=== PATIENT | female | born 1935 | race Caucasian/White ===

== ENCOUNTER 2018-03-09 09:50 | Inpatient (IN) | payer OTHER ==
[~2018-03-09] VITALS: Ht 157.5 cm; Wt 54.4 kg
--- NOTE | ~2018-03-09 | HC ---
[facility] [place] [place] [address] CONSULTATION Name: SEEMA SEARS Room #: 224-P [facility] IN M.R.#: [id number] Admission: 03/09/18 Attend Phys: Cuba Villaseñor MD Discharge: 03/12/18 Date of : 35 Report #: [id number] THIS REPORT FOR: //name// CC: BYRON JAVIER Physician staff Cuba Villaseñor DATE OF SERVICE: 03/12/2018 ATTENDING PHYSICIAN: Dr. Villaseñor. REASON FOR CONSULTATION: Antibiotic management, left pyelonephritis. HISTORY OF PRESENT ILLNESS: The patient is an 82-year-old white woman who jokingly tells me she is 40, who reports she is feeling better compared to admission. Admission was promoted by nausea, vomiting and weakness as well as unsteadiness. Nausea and vomiting has improved. The unsteadiness was evaluated by Dr. Ly. The patient underwent extensive neuroradiology evaluation and essentially other than microvascular disease of the brain and some cerebral atrophy, no other findings detected. The urinalysis compatible with pyelonephritis. Urine culture pending at the time of this dictation. She had been afebrile and remains on treatment with Rocephin. SOCIAL HISTORY: Lives at home with several family members and her sister is said to be demented. PAST MEDICAL HISTORY: Heart murmur, broken shoulder and collarbone. History of left hip fracture 2016 requiring surgical intervention. Previous episode of C. difficile colitis. REVIEW OF SYSTEMS: The patient tells me she is feeling better. She has received excellent care in the hospital. All in all, she tries to continuously joke about these or that which I believe may be a little not appropriate for an 82-year-old woman, so I wonder if she has low-grade cognitive impairment. PHYSICAL EXAMINATION: GENERAL: A well-developed, not toxic looking woman. VITAL SIGNS: She has been afebrile since admission, temperature 98.2, pulse 87, respirations 18, BP 151/84. Height 5 feet 2 inches, weight 120 pounds. HEENMT: Head normocephalic, atraumatic. Pupils are equal, reactive, status post cataract surgery, bilateral arcus cornealis. Mouth: Good oral hygiene, dentition. NECK: Supple, no thyromegaly. BREASTS: Deferred. LUNGS; Clear to auscultation. HEART: S1, S2. No gallop or murmurs audible to me. [facility] [address] [place] [address] CONSULTATION Name: SEEMA SEARS Room #: 224-P [facility] IN M.R.#: [id number] Admission: 03/09/18 Attend Phys: Cuba Villaseñor MD Discharge: 03/12/18 Date of : 35 Report #: [id number] ABDOMEN: Soft, no masses or megaly. PELVIC AND RECTAL: Deferred. EXTREMITIES: No clubbing, cyanosis. NEUROLOGIC: Grossly within normal limits. LABORATORY DATA: Sodium 137, potassium 3.7, BUN 14, creatinine 0.6. WBC on admission was 14,600, hemoglobin 11.1 g/dL and platelets 678,000 with white blood cell count differential showing 84% segmented neutrophils. The white blood cell count yesterday dropped to 8800. The hemoglobin dropped to 9.3 g/dL. The urinalysis revealed proteinuria, 3+ blood, positive nitrite. Microscopic exam revealed pyuria, bacteriuria. The urine culture is pending 3 days later. RADIOLOGY EVALUATION: CT scan of the abdomen and pelvis repeated twice revealed findings compatible with left pyelonephritis, large left ovarian tumor, large uterine fibroids and inflammatory changes of the left kidneys, infected cyst could be given similar findings. MRI of the brain, CT scan of the brain revealed microvascular findings of lacunar strokes. MEDICATIONS: The patient has been on treatment with ceftriaxone 1 gram IV daily since 02/25/2018. She is also on oxybutynin, aspirin, pantoprazole, enoxaparin, acetaminophen p.r.n., ondansetron, thiamine is to be given for 2 doses. ASSESSMENT: 1. Acute left pyelonephritis, improving. 2. Leukocytosis, improved. 3. Anemia, undetermined etiology. 4. 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 5. Nausea, vomiting, possibly secondary to pyelonephritis, resolved. SUGGESTIONS: Obviously the patient appears to have improved with current regimen of Rocephin and intravenous fluids hydration. We will continue same. I suspect could change to an oral antibiotic as second or third generation oral cephalosporin will . The first strike that comes to mind is cefuroxime 500 mg p.o. b.i.d. Obviously, she could be discharged on these medications with no further workup of left kidney findings or plan. Dr. Villaseñor, thank you for requesting my suggestions in the care of your patient. <ELECTRONICALLY SIGNED> By: Kayode Clemens MD 03/13/18 0934 1117 2141 Kayode Clemens MD /nt
--- NOTE | ~2018-03-09 | EKG ---
[place] [address] [facility] [place] [address] ELECTROCARDIOGRAM REPORT Name: SEEMA SEARS Room #: 453-P ADM IN M.R.#: [id number] Admission: 03/09/18 Attend Phys: Cuba Villaseñor MD Discharge: Date of : 35 Report #: [id number] THIS REPORT FOR: //name// [facility] ED Test Date: 2018-03-09 Test Time: 10:42:52 Pat Name: SEEMA SEARS Department: Room: 170 16 Gender: F Vp Project: ERNESTO : 1935 Requested By: Tony Veliz Order Number: [id number] MD: Carl Oneal Measurements Intervals [place] Rate: 92 P: -18 MT: 107 QRS: -4 QRSD: 97 T: 46 QT: 353 QTc: 437 Interpretive Statements Sinus rhythm No significant abnormality Baseline wander in lead(s) V3 Compared to ECG 10/03/2015 20:48:42 No significant change was found Electronically Signed On 03-10-2018 14:07:59 CDT by Carl Oneal [email or web address] <ELECTRONICALLY SIGNED> By: Carl Oneal MD, [facility] 03/10/18 1404 1042 1042 Carl Oneal MD, [facility] /EPI
--- NOTE | ~2018-03-09 | HC ---
[facility] [place] [address] CONSULTATION Name: SEEMA SEARS Room #: 224-P [facility] IN M.R.#: [id number] Admission: 03/09/18 Attend Phys: Cuba Villaseñor MD Discharge: 03/12/18 Date of : 35 Report #: [id number] THIS REPORT FOR: //name// CC: BYRON JAVIER Physician staff Cuba Villaseñor DATE OF SERVICE: 03/09/2018 HISTORY OF PRESENT ILLNESS: This is an 82-year-old female patient who was admitted because the patient had some nausea and vomiting. The main neurological symptoms she reports is that she was somewhat unstable on walking. She said all the symptoms are already becoming better. She had similar symptoms in the past and she was diagnosed with C. difficile. She does have a history of urinary tract infection. These symptoms came spontaneously without any trauma. REVIEW OF SYSTEMS: Indicates that she is healthy. She takes 1 baby aspirin daily. She does take some medication for arthritis. She has a history of shingles. She has a history of heart murmur and C. difficile. She had a hip fracture at one time as I understand. I carried out the 14-point review of systems. She is feeling better. She is not having any new eye, ENT, cardiac, respiratory, , musculoskeletal, constitutional, dermatological, hematological, psychiatric, throat, allergic symptom associated with present symptomatology and her 14-point review of system was mostly noncontributory. PAST MEDICAL HISTORY: Positive for similar symptom. FAMILY HISTORY: Negative for early age stroke. SOCIAL HISTORY: She does not smoke. PHYSICAL EXAMINATION: Indicates she is alert, responsive, oriented. Her speech, concentration, fund of knowledge and memory are at her baseline. Cranial nerve examination 2-12 is unremarkable. She has symmetrical strength, sensation, reflexes and tone in all 4 extremities. She has no cerebellar sign and papilledema. There is no carotid bruit. There is no thyroid mass. She is a moderately built individual who does not have any dysmorphic features of eyes, ears and face. Her vision and hearing looks adequate. Pulses are difficult to feel. Cardiac examination does not appear to be showing any atrial fibrillation. No respiratory difficulty or rhonchi was noticed either side. Blood pressure is 141/67, respirations are 16, pulse is 96, temperature is 98.5. LABORATORY DATA: Her white count is elevated at 14.6 and she is somewhat dehydrated at GFR of 48. Her total protein is high and her albumin actually is low. She did not have any [place] [address] CONSULTATION Name: SEEMA SEARS Room #: [address] [place] [address] IN M.R.#: [id number] Admission: 03/09/18 Attend Phys: Cuba Villaseñor MD Discharge: 03/12/18 Date of : 35 Report #: [id number] IMPRESSION: The patient does complain of slight ataxia. She does need some workup. This all may be related to her metabolic disturbances. I would like to exclude a posterior fossa lesion by doing a CT tomorrow and probably an MRI tomorrow. There is some question of altered mentation in this patient, but does not look like this patient is having any alteration in her mental status now and we will just basically observe her in that stage and see how she does. She does have some increased white count and increased protein and that need to be further worked up and I will defer that further workup to you. RECOMMENDATIONS: 1. CT of the head. 2. Give her some time. 3. We will suggest checking an immunofixation electrophoresis because of her high protein. 4. Rest of the workup will depend upon the outcome of the testing and how she does by tomorrow and I will follow this patient with you and we may do an MRI and MRA tomorrow. Thank you very much for this referral. <ELECTRONICALLY SIGNED> By: Diogo Ly MD 03/13/18 0818 1742 2324 Diogo Ly MD /nt
--- NOTE | ~2018-03-09 | 2DMMODE ---
[facility] [address] [place] [address] 2 D/M-MODE ECHOCARDIOGRAM Name: SEEMA SEARS Room #: 453-P ADM IN M.R.#: [id number] Admission: 03/09/18 Attend Phys: Cuba Villaseñor MD Discharge: Date of : 35 Date of Service: 03/10/18 1115 Report #: [id number] THIS REPORT FOR: //name// APPROVED REPORT Study performed: 03/10/2018 08:16:15 EXAM: Comprehensive 2D, Doppler, and color-flow Echocardiogram Patient Location: Echo lab Room #: [facility] Status: routine BSA: 1.54 HR: 78 bpm BP: 120/60 mmHg Rhythm: NSR Other Information Study Quality: Adequate Indications Source of emboli, rule out clot. 2D Dimensions RVDd: 30.42 mm LVEF(%): 48.49 (>50%) IVSd: 9.99 (7-11mm) LVOT Diam: 19.16 (18-24mm) LVDd: 41.22 mm PWd: 9.23 (7-11mm) LVDs: 31.27 (25-40mm) Aortic Root: 30.58 mm Jones's LVEF: 48.49 % Volumes Left Atrial Volume (Systole) Single Plane 4CH: 20.41 mL Single Plane 2CH: 36.98 mL LA ESV Index: 21.00 mL/m2 Aortic Valve AoV Peak Albert.: 1.52 m/s AO Peak Gr.: 9.19 mmHg LVOT Max P.32 mmHg LVOT Max V: 1.04 m/s MYA Vmax: 1.98 cm2 Mitral Valve E/A Ratio: 0.8 MV Decel. Time: 178.90 ms [facility] [address] [place] [address] 2 D/M-MODE ECHOCARDIOGRAM Name: RENUSEEMA Room #: 453-[facility] IN ..#: [id number] Admission: 03/09/18 Attend Phys: Cuba Villaseñor MD Discharge: Date of : 35 Date of Service: 03/10/18 1115 Report #: [id number] MV E Max Albert.: 0.76 m/s MV A Albert.: 1.01 m/s MV PHT: 51.88 ms IVRT: 101.50 ms Pulmonary Valve PV Peak Albert.: 0.93 m/s PV Peak Gr.: 3.44 mmHg Pulmonary Vein P Vein S: 0.61 m/s P Vein A: 0.39 m/s P Vein D: 0.36 m/s P Vein S/D Ratio: 1.69 Tricuspid Valve TR Peak Albert.: 2.89 m/s RAP Estimate: 5.00 mmHg TR Peak Gr.: 33.48 mmHg PA Pressure: 38.00 mmHg Left Ventricle The left ventricle is normal size. Mild basal septal hypertrophy is present. Left ventricular systolic function is normal. LVEF is 55%. Mild diastolic dysfunction is present (impaired relaxation pattern). Right Ventricle The right ventricle is normal size. The right ventricular systolic function is normal. Atria The left atrium size is normal. The right atrium size is normal. Aortic Valve Aortic valve is mildly calcified. Mild aortic regurgitation. There is no aortic valvular stenosis. Mitral Valve Mitral valve leaflets are mildly thickened. Mild mitral annular calcification. Trace to mild mitral regurgitation. Tricuspid Valve The tricuspid valve is normal in structure. Mild to moderate tricuspid regurgitation. Estimated PAP 40mmHg. Pulmonic Valve Pulmonic valve is not well visualized. [facility] [address] [place] [address] 2 D/M-MODE ECHOCARDIOGRAM Name: SEEMA SEARS Room #: 453-P [facility] IN ..#: [id number] Admission: 03/09/18 Attend Phys: Cuba Villaseñor MD Discharge: Date of : 35 Date of Service: 03/10/18 1115 Report #: [id number] Great Vessels The aortic root is normal in size. IVC is normal in size and collapses >50% with inspiration. Pericardium There is no pericardial effusion. <Conclusion> Left ventricular systolic function is normal. LVEF is 55%. Mild diastolic dysfunction Aortic valve is mildly calcified. Mild aortic regurgitation, no stenosis. Mitral valve leaflets are mildly thickened. Mild mitral annular calcification. Trace to mild mitral regurgitation. Mild to moderate tricuspid regurgitation. Estimated pulmonary artery pressure of 40mmHg. There is no pericardial effusion. The left ventricle is normal size. LVEF is 55%. Aortic valve is mildly calcified. Mild aortic regurgitation. Mitral valve leaflets are mildly thickened. Mild mitral annular calcification. Trace to mild mitral regurgitation. The tricuspid valve is normal in structure. Mild to moderate tricuspid regurgitation. Estimated PAP 40mmHg. There is no pericardial effusion. <ELECTRONICALLY SIGNED> By: Gómez Raphael MD 03/10/18 1115 1115 1115 Gómez Raphael MD /INF
[~2018-03-09 09:50] MED LIST: ASPIR 8181 MG PO; BISACODYL SUPP10 MG RECTAL; CIPRO250 M1 PO; ENOXAPARIN30 MG/0.1 SUBQ; HYDROCODONE-AP1 EAC6 PO; LOVENOX40 MG/0.4 SQ; TYLENOL325 MG PO; VANCOMYCIN100 MG/M1 PO
[2018-03-09 10:22] VITALS: BP 150/97
[2018-03-09 11:01] LABS: ABSOLUTE NEUTROPHILS 12.4 thou/uL (1.4-8.2); BASOPHILS 0.4 % (0.0-2.0); EOSINOPHILS 0.1 % (0.0-3.0); HEMATOCRIT 33.3 % (37.0-47.0); HEMOGLOBIN 11.1 gm/dL (12.0-15.0); LYMPHOCYTES 7.1 % (24.0-44.0); MCH 29.1 pg (26.0-34.0); MCHC 33.4 g/dL (28.0-37.0); MCV 87.1 fL (80.0-100.0); MONOCYTES 7.6 % (1.0-8.0); PLATELET COUNT 678 thou/uL (150-400); POLYS 84.8 % (36.0-66.0); RBC 3.82 mil/uL (4.20-5.00); WBC 14.6 thou/uL (4.0-11.0)
[2018-03-09 11:33] LABS: ANION GAP 9 mmol/L (7-16); BUN 23 mg/dL (7-18); CALCIUM 9.9 mg/dL (8.5-10.1); CHLORIDE 98 mmol/L (98-107); CO2 27 mmol/L (21-32); CREATININE 1.1 mg/dL (0.6-1.0); GLUCOSE 129 mg/dL (74-106); POTASSIUM 3.9 mmol/L (3.5-5.1); SODIUM 134 mmol/L (136-145)
[2018-03-09 11:37] LABS: URINE BLOOD 3+ (Negative); URINE CLARITY CLOUDY; URINE COLOR YELLOW; URINE GLUCOSE-RANDOM* NEGATIVE (Negative); URINE KETONES TRACE (Negative); URINE PROTEIN (DIPSTICK) 2+ (Negative); URINE SPECIFIC GRAVITY 1.025 (1.005-1.035); URINE UROBILINOGEN 0.2 E.U./dl (0.2-1.0)
[2018-03-09 11:39] LABS: ICTOTEST (BILI CONFIRMATORY) Negative (Negative); URINE BILIRUBIN NEGATIVE (Negative); URINE LEUKOCYTES-REFLEX 3+ (Negative); URINE NITRITE-REFLEX POSITIVE (Negative)
[2018-03-09 11:42] LABS: ALBUMIN 2.6 g/dL (3.4-5.0); LIPASE 96 U/L (73-393); SGOT 41 U/L (15-37); SGPT 41 U/L (30-65); TOTAL BILIRUBIN 0.5 mg/dL (<0.1-1.0); TOTAL PROTEIN 9.2 g/dL (6.4-8.2); TROPONIN-I < 0.04 ng/mL (<0.06)
[2018-03-09 11:46] LABS: BACTERIA-REFLEX >30 Many /HPF (None Seen); CASTS None Seen /LPF (None Seen); CRYSTALS None Seen /LPF (None Seen); SQUAMOUS None Seen /LPF (0-3); URINE RBC 3-10 Few /HPF (0-2); URINE WBC-REFLEX >25 Many /HPF (0-5)
[2018-03-09] MEDS ORDERED: FOSAMAX 70 MG T70 MG PO (12:54)
[2018-03-09] MEDS ORDERED: OXYBUTYNIN 5 MG5 M2 PO (12:55)
[2018-03-09 13:26] VITALS: BP 129/66
[2018-03-09 13:50] VITALS: BP 132/65
[2018-03-09 15:20] VITALS: BP 141/67
[2018-03-09 19:56] VITALS: BP 121/48
[2018-03-09 23:27] VITALS: BP 130/68
[2018-03-10 03:46] VITALS: BP 125/73
[2018-03-10 07:47] VITALS: BP 120/60
[2018-03-10 15:42] VITALS: BP 138/68
[2018-03-10 20:05] VITALS: BP 140/67
[2018-03-11 04:11] VITALS: BP 143/67
[2018-03-11 05:21] LABS: ABSOLUTE NEUTROPHILS 6.5 thou/uL (1.4-8.2); BASOPHILS 0.4 % (0.0-2.0); EOSINOPHILS 1.4 % (0.0-3.0); HEMATOCRIT 27.7 % (37.0-47.0); HEMOGLOBIN 9.3 gm/dL (12.0-15.0); LYMPHOCYTES 14.1 % (24.0-44.0); MCH 29.6 pg (26.0-34.0); MCHC 33.8 g/dL (28.0-37.0); MCV 87.5 fL (80.0-100.0); MONOCYTES 10.8 % (1.0-8.0); POLYS 73.3 % (36.0-66.0); RBC 3.16 mil/uL (4.20-5.00); RDW 15.2 % (10.5-14.5); WBC 8.8 thou/uL (4.0-11.0)
[2018-03-11 05:24] LABS: PLATELET COUNT 521 thou/uL (150-400)
[2018-03-11 05:34] LABS: CALCIUM 8.5 mg/dL (8.5-10.1); CREATININE 0.6 mg/dL (0.6-1.0); MAGNESIUM 1.8 mg/dL (1.8-2.4); POTASSIUM 3.7 mmol/L (3.5-5.1)
[2018-03-11 08:06] VITALS: BP 123/8
[2018-03-11 16:50] VITALS: BP 123/51
[2018-03-11 19:51] VITALS: BP 143/76
[2018-03-12 08:41] VITALS: BP 151/84
[2018-03-12 10:36] VITALS: BP 151/84
[2018-03-12] MEDS ORDERED: CEFUROXIME500 MG PO (13:29)
[2018-03-12] MEDS ORDERED: VITAMIN B-1100 M2 PO (13:29)
[2018-03-12 13:55] VITALS: BP 151/84
== END 2018-03-12 15:21 | disposition home health service (06) | DRG 871 ==
LOC: ER 09:50 → 4W 12:21 → EROBS 12:21 → 4W 14:08 → SICU 03-11 15:58 → ENTRNSPT 03-12 15:05 → EDTRNSPTSTS 03-12 15:07 → SICU 03-12 15:21
PROVIDERS: Nurse Practitioner; Physician Assistant
DX: A41.9 Sepsis, unspecified organism (principal); E43 Unspecified severe protein-calorie malnutrition; N17.9 Acute kidney failure, unspecified; N39.0 Urinary tract infection, site not specified; N10 Acute pyelonephritis; E87.1 Hypo-osmolality and hyponatremia; R27.0 Ataxia, unspecified; G31.9 Degenerative disease of nervous system, unspecified; D64.9 Anemia, unspecified; D47.3 Essential (hemorrhagic) thrombocythemia; M85.80 Other specified disorders of bone density and structure, unspecified site; M81.0 Age-related osteoporosis without current pathological fracture; K21.9 Gastro-esophageal reflux disease without esophagitis; I65.1 Occlusion and stenosis of basilar artery; N28.89 Other specified disorders of kidney and ureter; D25.9 Leiomyoma of uterus, unspecified; Z87.81 Personal history of (healed) traumatic fracture; Z88.0 Allergy status to penicillin; Z79.82 Long term (current) use of aspirin; Z79.899 Other long term (current) drug therapy; Z68.21 Body mass index [BMI] 21.0-21.9, adult
CPT/HCPCS: 10045; 15002

== ENCOUNTER → 2018-07-17 | Outpatient (CLI) | payer OTHER ==
[~2018-07-17] MED LIST changes: +CEFUROXIME500 MG PO; +FOSAMAX 70 MG T70 MG PO; +OXYBUTYNIN 5 MG5 M2 PO; +VITAMIN B-1100 M2 PO
[2018-07-17 09:34] LABS: CREATININE 0.7 mg/dL (0.6-1.0)
== END ==
LOC: CAT 08:33
PROVIDERS: Urology
DX: N28.9 Disorder of kidney and ureter, unspecified (principal); K76.9 Liver disease, unspecified; K44.9 Diaphragmatic hernia without obstruction or gangrene; N28.89 Other specified disorders of kidney and ureter